=== PATIENT | male | born 1945 | race Caucasian/White ===

== ENCOUNTER 2018-08-02 10:12 | Day surgery (SDC) | payer MEDICARE, OTHER ==
[2018-08-01 17:00] VITALS: BMI 22.4
[2018-08-02] MEDS ORDERED: Fentanyl 100 MCG/2 ML VIAL ONE (12:51)
[2018-08-02] MEDS ORDERED: PROPOFOL 200 MG/20 ML VIAL ONE (13:05)
[2018-08-02] MEDS ORDERED: Lidocaine 1% PF 5 ML VIAL ONE (13:05)
[2018-08-02] MEDS ORDERED: HYDROcodone/Acetaminophen 5/325 mg Tablet ONE (15:35)
--- NOTE | 2018-08-02 16:10 | MRI ---
MRI OF BRAIN AND FACE AND UPPER NECK WITH AND WITHOUT CONTRAST: DATE: 08/02/2018. HISTORY: A 72-year-old male with C44.329, squamous cell carcinoma of skin of other parts of face. COMPARISON: Prior MRIs of 10/29/2017 and 06/11/2017 from [facility]. TECHNIQUE: Multiplanar, multisequence MRI covering the whole brain, face, and suprahyoid upper neck, pre- and po st-IV injection of 15 mL of MultiHance Gadolinium-based contrast agent. FINDINGS: Again demonstrated is the enhancing soft tissue material filling the left pterygopalatine fossa and p terygomaxillary fissure (and effacing the normal fat signal there). There is a thin linear track of enhancement from this, extending posteriorly along the left foramen rotundum (V2, maxillary nerve bra nch of the trigeminal nerve) to reach the lateral edge of the left side of the cavernous sinus. This is contiguous inferiorly with a subtle, small focus of asymmetrically increased enhancement in the r egion slightly superior to the left foramen ovale (V3, mandibular nerve branch of the trigeminal nerv e. No definitive evidence of extension at or inferior to foramen ovale by this. The appearance of t his is unchanged compared to 10/29/2017 (contrary to that report). There is questionable involvement o f the left infraorbital canal. Meckles caves are bilaterally normal, with normal signal and no enhancing masses. There is no evidence of tumor extension into the brain parenchyma or in the basal cisterns. The vent ricles are normal in size and configuration. No restricted diffusion, abnormal intraaxial enhancemen t, intraaxial mass, mass effect, midline shift, or extraaxial fluid collection. Moderate chronic isc hemic white matter changes in the centrum semiovale and thomas radiata. IMPRESSION: 1. 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 2. No evidence of malignant neoplastic involvement of the brain. 3. Moderate chronic ischemic white matter changes of the brain. 4. No definitive evidence of major interval change compared to 06/11/2017 and 10/29/2017. POS: [facility]
== END 2018-08-02 16:40 | disposition home or self-care (01) ==
LOC: SDC/OP 10:12
PROVIDERS: ATTEND Internal Medicine Hematology & Oncology
DX: C44.329 Squamous cell carcinoma of skin of other parts of face (principal); Z79.01 Long term (current) use of anticoagulants; Z79.52 Long term (current) use of systemic steroids; Z79.899 Other long term (current) drug therapy; Z88.2 Allergy status to sulfonamides; Z88.8 Allergy status to other drugs, medicaments and biological substances
CPT/HCPCS: 70543; 82565; J2001; J2704; J3010